=== PATIENT | female | born 1980 | race Caucasian/White ===

== ENCOUNTER 2017-03-20 15:16 | Observation (INO) | payer BC ==
[~2017-03-20] VITALS: Ht 154.9 cm; Wt 72.6 kg
[2017-03-20 17:07] LABS: BASOPHILS % 0.8 % (0.0-2.0); EOSINOPHILS % 1.2 % (0.0-5.0); LYMPHOCYTES % 22.7 % (20.0-50.0); MEAN CORPUSCULAR HEMOGLOBIN 18.8 pg (28.0-32.0); MEAN CORPUSCULAR VOLUME 65.1 fL (81.0-99.0); MEAN PLATELET VOLUME 7.4 fl (7.4-10.4); MONOCYTES % 8.1 % (2.0-8.0); NEUTROPHILS % 67.2 % (40.0-76.0); PLATELET 459 x1000/uL (130-400); RED BLOOD CELL COUNT 3.39 mill/uL (4.2-5.4); RED CELL DISTRIBUTION WIDTH 18.8 % (11.6-14.6)
[2017-03-20 17:12] LABS: HEMOGLOBIN. 6.4 g/dL (12.0-16.0)
[2017-03-20 17:31] LABS: PLATELET ESTIMATE INCREASED
[2017-03-20 18:19] LABS: CHLORIDE 106 mEq/L (98-107)
[2017-03-20 18:23] LABS: HCG SCREEN NEGATIVE
[2017-03-20 18:29] LABS: CARBON DIOXIDE 29 mEq/L (21-32)
[2017-03-21] MEDS ORDERED: ONDANSETRON HCL 4MG/2ML VIAL IV PRN (00:15)
[2017-03-21 00:45] LABS: BASOPHILS % 0.7 % (0.0-2.0); HEMATOCRIT. 28.4 % (36.0-48.0); HEMOGLOBIN. 8.9 g/dL (12.0-16.0); LYMPHOCYTES % 17.2 % (20.0-50.0); MEAN CORPUSCULAR HEMOGLOBIN 21.6 pg (28.0-32.0); MEAN CORPUSCULAR VOLUME 69.2 fL (81.0-99.0); MEAN PLATELET VOLUME 7.7 fl (7.4-10.4); MONOCYTES % 6.2 % (2.0-8.0); NEUTROPHILS % 74.9 % (40.0-76.0); PLATELET 469 x1000/uL (130-400); RED CELL DISTRIBUTION WIDTH 21.5 % (11.6-14.6)
[2017-03-21 00:50] LABS: TOTAL IRON BINDING CAPACITY 376 ug/dL (250-450)
[2017-03-21 01:30] LABS: VITAMIN B12 SERUM 594 pg/mL (211-911)
[2017-03-21] MEDS ORDERED: LEVO112T2 PO (01:56)
[2017-03-21] MEDS ORDERED: CLONIDINE 0.1MG TABLET PO PRN (02:00)
[2017-03-21 02:08] VITALS: BP 161/101
[2017-03-21] MEDS ORDERED: POTASSIUM CHLORIDE 20MEQ TABLET SR PO SCH (06:30)
[2017-03-21] MEDS ORDERED: LEVOTHYROXINE SODIUM 112MCG TABLET PO SCH (07:20)
[2017-03-21] MEDS ORDERED: PANTOPRAZOLE 40MG DR TABLET PO SCH (07:20)
[2017-03-21 07:56] VITALS: BP 132/90
[2017-03-21 12:00] VITALS: BP 127/85
[2017-03-21 15:20] LABS: PROTHROMBIN TIME 10.4 sec
[2017-03-21 16:14] VITALS: BP 127/85
== END 2017-03-21 16:40 | disposition home or self-care (01) ==
LOC: ER 19:41 → 6WST 20:20 → INTOOBSV 20:20
PROVIDERS: ADMIT Internal Medicine; ATTEND Internal Medicine
DX: D64.9 Anemia, unspecified (principal); D25.9 Leiomyoma of uterus, unspecified; N92.0 Excessive and frequent menstruation with regular cycle; E03.9 Hypothyroidism, unspecified
CPT/HCPCS: 36415; 36430; 80053; 82607; 83540; 83550; 84443; 84703; 85025; 85610; 86850; 86900; 86901; 86920; 93005; G0378; J7050; P9016

== ENCOUNTER 2017-05-24 09:27 | Day surgery (SDC) | payer BC ==
[~2017-05-24] VITALS: Ht 154.9 cm; Wt 68.0 kg
[~2017-05-24 09:27] MED LIST: LEVO112T2 PO
[2017-05-24 10:29] LABS: BASOPHILS % 1.1 % (0.0-2.0); HEMATOCRIT. 37.8 % (36.0-48.0); HEMOGLOBIN. 12.7 g/dL (12.0-16.0); LYMPHOCYTES % 39.3 % (20.0-50.0); MEAN CORPUSCULAR HEMOGLOBIN 29.2 pg (28.0-32.0); MEAN CORPUSCULAR VOLUME 87.2 fL (81.0-99.0); MEAN PLATELET VOLUME 7.2 fl (7.4-10.4); MONOCYTES % 6.4 % (2.0-8.0); NEUTROPHILS % 50.2 % (40.0-76.0); PLATELET 371 x1000/uL (130-400); RED BLOOD CELL COUNT 4.34 mill/uL (4.2-5.4); RED CELL DISTRIBUTION WIDTH 14.3 % (11.6-14.6)
[2017-05-24 10:37] LABS: PARTIAL THROMBOPLASTIN TIME 25.7 sec (23.4-31.0); PROTHROMBIN TIME 10.5 sec (9.4-11.6)
[2017-05-24 10:39] LABS: GLUCOSE URINE NEGATIVE (NEGATIVE); KETONES URINE NEGATIVE (NEGATIVE); LEUKOCYTE ESTERASE URINE NEGATIVE (NEGATIVE); NITRITE URINE NEGATIVE (NEGATIVE); OCCULT BLOOD URINE 2+ (NEGATIVE); PROTEIN URINE NEGATIVE (NEGATIVE); SPECIFIC GRAVITY URINE 1.023 (1.005-1.030); UROBILINOGEN URINE 0.2 E.U./dL (0.2-1.0)
[2017-05-24 10:41] LABS: CLARITY URINE CLOUDY (CLEAR); COLOR URINE YELLOW (YELLOW)
[2017-05-24 11:08] LABS: UCG SCREEN NEGATIVE
[2017-05-24] MEDS ORDERED: SODIUM CHLORIDE 0.9% 1,000 ML IV SCH (12:10)
[2017-05-24] MEDS ORDERED: FERR324T7 PO (14:07)
[2017-05-24] MEDS ORDERED: PROPOFOL 200MG/20ML VIAL IV ONE (16:06)
[2017-05-24] MEDS ORDERED: CEFAZOLIN SODIUM 1000MG/VIAL ONE (16:06)
[2017-05-24] MEDS ORDERED: FENTANYL CITRATE/PF 50MCG/ML 2ML VIAL ONE (16:07)
[2017-05-24] MEDS ORDERED: MIDAZOLAM HCL 2 MG/2 ML VIAL ONE (16:07)
[2017-05-24] MEDS ORDERED: LIDOCAINE HCL 1% 20ML VIAL (Pyxis) INJ ONE (16:12)
[2017-05-24] MEDS ORDERED: ONDANSETRON HCL 4MG/2ML VIAL IV PRN (17:45)
[2017-05-24] MEDS ORDERED: HYDROMORPHONE HCL/PF 2MG/ML CPJ IV PRN (17:45)
[2017-05-24 18:00] VITALS: BP 150/98
== END 2017-05-24 19:00 | disposition home or self-care (01) ==
LOC: OR 09:27
PROVIDERS: ATTEND Obstetrics & Gynecology Obstetrics
DX: N92.1 Excessive and frequent menstruation with irregular cycle (principal); D64.9 Anemia, unspecified; E11.9 Type 2 diabetes mellitus without complications; I10 Essential (primary) hypertension; E03.9 Hypothyroidism, unspecified
CPT/HCPCS: 36415; 58558; 81001; 81025; 85025; 85610; 85730; 88305; J0690; J1170; J2250; J3010; J3490; J7030; J2704